=== PATIENT | male | born 1950 | race Caucasian/White ===

== ENCOUNTER 2018-08-28 14:14 | Emergency (ER) | payer MEDICARE ==
[2018-08-28 14:50] LABS: #Basophils 0.1 thou/uL (0.0-0.2); #Eosinphils 0.4 thou/uL (0.0-0.7); #Lymphocytes 1.7 thou/uL (1.20-3.40); #Monocytes 0.6 thou/uL (0.11-0.59); #Neutrophils 3.3 thou/uL (1.40-6.50); %Basophils 0.9 % (0.0-1.0); %Eosinophils 6.4 % (0.0-10.0); %Monocytes 10.3 % (0.0-10.0); %Neutrophils 54.5 % (42.0-75.0); Hemoglobin 12.7 g/dL (14.0-18.0); Mean Corpuscular HGB CONC 33.2 g/dL (32.0-36.0); Mean Corpuscular Volume 81.4 fL (78.0-98.0); Mean Platelet Volume 7.7 fL (7.4-10.4); Platelet Count 149 thou/uL (130-400); Red Blood Cell (RBC) Count 4.72 mill/uL (4.70-6.10)
[2018-08-28 15:15] LABS: ALT (SGPT) 17 U/L (8-55); AST (SGOT) 15 U/L (5-34); Albumin 3.7 g/dL (3.4-4.8); Alkaline Phosphatase 72 U/L (40-150); Anion Gap 14 mmol/L (10-20); BUN (Urea Nitrogen) 30 mg/dL (8.4-25.7); Calc. Creatinine Clearance 0 mL/min (70-130); Calcium 8.9 mg/dL (7.8-10.44); Carbon Dioxide 20 mmol/L (23-31); Chloride 108 mmol/L (98-107); Estimated GFR-MDRD 62; Globulin 2.8 g/dL (2.4-3.5); Glucose 170 mg/dL (80-115); Potassium 4.1 mmol/L (3.5-5.1); Protein, Total 6.5 g/dL (5.8-8.1); Sodium 138 mmol/L (136-145)
[2018-08-28 15:29] LABS: Bilirubin, Total 11.6 mg/dL (0.2-1.2)
--- NOTE | 2018-08-28 15:31 | RAD ---
TWO VIEWS OF CHEST: HISTORY: Dyspnea. FINDINGS: Two views of chest are obtained. Cardiomegaly is seen. A dual-lead intracardiac defibrillator is se en. Pulmonary vascular congestion is seen. No evidence of effusions, pneumonia, or pneumothorax is seen. A dorsal column stimulator is in place. The patient has had previous ACDF. IMPRESSION: Cardiomegaly and pulmonary vascular congestion. POS: [facility]
[2018-08-28] MEDS ORDERED: predniSONE 20 MG TAB ONE (16:26)
[2018-08-28] MEDS ORDERED: Azithromycin 250 MG TAB ONE (16:26)
== END 2018-08-28 16:43 | disposition home or self-care (01) ==
LOC: NAV ERS 14:14
DX: J44.1 Chronic obstructive pulmonary disease with (acute) exacerbation (principal); E11.9 Type 2 diabetes mellitus without complications; E78.5 Hyperlipidemia, unspecified; I11.0 Hypertensive heart disease with heart failure; I50.9 Heart failure, unspecified; F41.9 Anxiety disorder, unspecified; F32.9 Major depressive disorder, single episode, unspecified; Z87.891 Personal history of nicotine dependence; Z79.899 Other long term (current) drug therapy; Z79.51 Long term (current) use of inhaled steroids
CPT/HCPCS: 36415; 71046; 80053; 83880; 84484; 85025; 93005; J7506; J7620

== ENCOUNTER 2018-09-23 09:55 | Outpatient (CLI) | payer MEDICARE ==
--- NOTE | 2018-09-23 12:21 | CT ---
CT LUMBAR SPINE WITHOUT CONTRAST: HISTORY: Post laminectomy syndrome. Pain. COMPARISON: None. FINDINGS: The aortic contour is nonaneurysmal. Moderate atherosclerotic plaque. No retroperitoneal adenopathy . Mild renal atrophy bilaterally. The urinary bladder is distended. The L5 vertebra is a lumbosacral transitional vertebra with fusion of the right enlarged L5 transvers e process with the sacrum. There is erosion of the inferior endplate of L1 and the superior endplate of L2 with degenerative ant erolisthesis. There is hardware within the right L1-L2 facet joint. There is posterior spinal fusio n hardware with a transpedicular ciera and screws bilaterally, at L3-L4, without hardware lucency. The re is a unilateral, right-sided transpedicular screw at L5. There appears to be removal of left L5 h ardware and L4 hardware. There is interbody fusion at L2-L3 and at L3-L4. Large left and right side d bridging osteophytes at L1-L2. There is height loss of the anterior-inferior endplate of L1. Levels are as follows: L1-L2: Circumferential disk bulge. There is ligamentum flavum hypertrophy. The spinal canal appear s to be narrowed to approximately 5 mm. There is moderate to severe bilateral neural foraminal narro wing. L2-L3: Diskectomy changes with interbody fusion. There is still a circumferential disk osteophyte c omplex posteriorly, causing moderate to severe bilateral neural foraminal narrowing. There is also s evere facet arthrosis and ligamentum flavum hypertrophy. The spinal canal appears to be narrowed to approximately 6 mm. Laminectomy changes. L3-L4: Diskectomy changes and interbody fusion. There is still a posterior osteophyte complex and s evere facet arthrosis, narrowing the spinal canal to approximately 6 mm. There is also moderate bila teral neural foraminal narrowing. L4-L5: Minimal degenerative disk space height loss. Severe facet arthrosis. Laminectomy change. T here is subforaminal posterior disk osteophyte complexes causing moderate to severe right and moderat e left side neural foraminal narrowing. Laminectomy changes. L5-S1: Left-sided pars interarticularis defect. No significant neural foraminal or spinal canal shaan rowing. IMPRESSION: 1. Severe degenerative change, L1-L2 disk space, with erosions of the endplates, as well as height l oss, anterior-inferior L1 vertebral body. There is subsequent posterior disk osteophyte complex with narrowing of the spinal canal and neural foramen. 2. Extensive post surgical change, as above. No evidence for hardware complication. There does annabel ear to be hardware removal of L4-L5. POS: [facility]
== END 2018-09-23 09:56 | disposition home or self-care (01) ==
LOC: NAV CT 09:55
PROVIDERS: ATTEND Specialist
DX: M96.1 Postlaminectomy syndrome, not elsewhere classified (principal); M47.816 Spondylosis without myelopathy or radiculopathy, lumbar region; M48.061 Spinal stenosis, lumbar region without neurogenic claudication; Z98.890 Other specified postprocedural states
CPT/HCPCS: 72131